=== PATIENT | female | born 1975 | race Two or more races ===

== ENCOUNTER → 2017-04-28 08:25 | Outpatient (CLI) | payer OTHER ==
[~2017-04-28 08:25] MED LIST: FLOVENT13 G1; FLOVENT13 G1 IH; MEDROLPACK PO; PROVENTIL HFA6.7 GM IH; PROVENTIL S1 ML/5 MG; PROVENTIL S1 ML/5 MG IH; ZYRTEC10 MG PO
== END | disposition home or self-care (01) ==
LOC: LAB 04-27 12:08
DX: Z11.3 Encounter for screening for infections with a predominantly sexual mode of transmission (principal); N64.3 Galactorrhea not associated with childbirth; E03.8 Other specified hypothyroidism

== ENCOUNTER 2017-04-28 15:03 | Outpatient (CLI) | payer OTHER | END 2017-05-02 09:25 | disposition home or self-care (01) | LOC: SONOGRAMA 15:03 | DX: D25.9 Leiomyoma of uterus, unspecified (principal) ==

== ENCOUNTER 2017-06-02 06:36 | Day surgery (SDC) | payer OTHER | END 2017-06-02 15:20 | disposition home or self-care (01) | LOC: CIR.AMB 06:36 | DX: D25.9 Leiomyoma of uterus, unspecified (principal); N85.00 Endometrial hyperplasia, unspecified; N92.1 Excessive and frequent menstruation with irregular cycle ==

== ENCOUNTER → 2017-06-12 | Outpatient (CLI) | payer OTHER ==
[~2017-06-12] VITALS: Ht 152.4 cm; Wt 70.8 kg
== END | disposition home or self-care (01) ==
LOC: PPHC 12:15
DX: I10 Essential (primary) hypertension (principal)

== ENCOUNTER → 2017-06-20 | Outpatient (CLI) | payer OTHER ==
[~2017-06-20] VITALS: Ht 152.4 cm; Wt 70.8 kg
== END | disposition home or self-care (01) ==
LOC: PPHC 12:19
DX: B34.9 Viral infection, unspecified (principal)

== ENCOUNTER → 2017-10-03 07:36 | Outpatient (CLI) | payer OTHER | END | disposition home or self-care (01) | LOC: LAB 07:36 | DX: E78.4 Other hyperlipidemia (principal); I10 Essential (primary) hypertension ==

== ENCOUNTER 2017-10-05 08:16 | Outpatient (CLI) | payer OTHER | END 2017-10-05 10:17 | disposition home or self-care (01) | LOC: LAB 08:16 | DX: Z11.1 Encounter for screening for respiratory tuberculosis (principal) ==

== ENCOUNTER 2017-11-07 06:59 | Outpatient (CLI) | payer OTHER | END 2017-11-08 08:39 | disposition home or self-care (01) | LOC: RAD 06:59 | DX: N64.3 Galactorrhea not associated with childbirth (principal); Z12.31 Encounter for screening mammogram for malignant neoplasm of breast; N60.11 Diffuse cystic mastopathy of right breast; N60.12 Diffuse cystic mastopathy of left breast ==

== ENCOUNTER → 2017-11-07 07:08 | Outpatient (CLI) | payer OTHER ==
[~2017-11-07 07:08] MED LIST changes: +COLACE100 MG PO; +PERCOCET 5-3251 EACH PO
== END | disposition home or self-care (01) ==
LOC: LAB 07:08
DX: D50.8 Other iron deficiency anemias (principal); E83.51 Hypocalcemia; E78.00 Pure hypercholesterolemia, unspecified; E03.8 Other specified hypothyroidism; N39.0 Urinary tract infection, site not specified; Z32.00 Encounter for pregnancy test, result unknown

== ENCOUNTER 2017-11-14 16:08 | Outpatient (CLI) | payer OTHER ==
[~2017-11-14 16:08] MED LIST changes: -COLACE100 MG PO; -PERCOCET 5-3251 EACH PO
== END 2017-11-14 16:21 | disposition home or self-care (01) ==
LOC: EKG 16:08
DX: Z13.6 Encounter for screening for cardiovascular disorders (principal); N39.0 Urinary tract infection, site not specified

== ENCOUNTER 2017-11-21 08:42 | Inpatient (IN) | payer OTHER ==
[~2017-11-21] VITALS: Ht 157.5 cm; Wt 73.5 kg
[2017-11-26] MEDS ORDERED: COLACE100 MG PO (08:58)
[2017-11-26] MEDS ORDERED: PERCOCET 5-3251 EACH PO (08:58)
== END 2017-11-26 10:51 | disposition home or self-care (01) | DRG 743 ==
LOC: O/R 11-24 05:08 → SURH 11-24 07:00 → OB/GYN 11-24 11:00
PROVIDERS: Specialist
PROC: 3E0F7GC Introduction of Other Therapeutic Substance into Respiratory Tract, Via Natural or Artificial Opening (ICD-10-PCS; 2017-11-24)
PROC: 0UT90ZZ Resection of Uterus, Open Approach (ICD-10-PCS; principal; 2017-11-24 07:00)
DX: D25.1 Intramural leiomyoma of uterus (principal); N72 Inflammatory disease of cervix uteri; I10 Essential (primary) hypertension; J45.909 Unspecified asthma, uncomplicated

== ENCOUNTER → 2017-12-05 12:58 | Outpatient (CLI) | payer OTHER ==
[~2017-12-05 12:58] MED LIST changes: +COLACE100 MG PO; +PERCOCET 5-3251 EACH PO
== END | disposition home or self-care (01) ==
LOC: LAB 12:58
DX: N39.0 Urinary tract infection, site not specified (principal)

== ENCOUNTER 2017-12-18 12:58 | Outpatient (CLI) | payer OTHER | END 2017-12-18 13:23 | disposition home or self-care (01) | LOC: SONOGRAMA 12:58 | DX: J45.21 Mild intermittent asthma with (acute) exacerbation (principal); N60.11 Diffuse cystic mastopathy of right breast; N60.12 Diffuse cystic mastopathy of left breast ==

== ENCOUNTER 2018-04-14 10:56 | Outpatient (CLI) | payer OTHER | END 2018-04-14 11:07 | disposition home or self-care (01) | LOC: LAB 10:56 | DX: Z00.00 Encounter for general adult medical examination without abnormal findings (principal); E78.49 Other hyperlipidemia; R57.8 Other shock; M54.2 Cervicalgia ==

== ENCOUNTER 2018-08-17 17:20 | Outpatient (CLI) | payer OTHER | END 2018-08-17 18:00 | disposition home or self-care (01) | LOC: RAD 17:20 | DX: M79.672 Pain in left foot (principal) ==

== ENCOUNTER 2019-01-05 14:11 | Outpatient (CLI) | payer OTHER | END 2019-01-05 14:20 | disposition home or self-care (01) | LOC: LAB 14:11 | DX: Z11.3 Encounter for screening for infections with a predominantly sexual mode of transmission (principal) ==

== ENCOUNTER 2019-07-24 10:42 | Outpatient (CLI) | payer OTHER | END 2019-07-24 11:30 | disposition home or self-care (01) | LOC: MAMO-SONO 10:42 | DX: Z12.31 Encounter for screening mammogram for malignant neoplasm of breast (principal); Z87.898 Personal history of other specified conditions ==

== ENCOUNTER → 2019-08-15 | Outpatient (CLI) | payer OTHER ==
[~2019-08-15] MED LIST changes: +CYCLOBENZAPRINE10 MG PO; +NABUMETONE500 MG PO
== END | disposition home or self-care (01) ==
LOC: RAD 13:00
PROVIDERS: ATTEND Physical Medicine & Rehabilitation
DX: M54.2 Cervicalgia (principal)

== ENCOUNTER → 2019-11-07 07:24 | Outpatient (CLI) | payer OTHER ==
[~2019-11-07 07:24] MED LIST changes: +SKELAXIN800 MG PO
== END | disposition home or self-care (01) ==
LOC: LAB 07:24
PROVIDERS: ATTEND Physical Medicine & Rehabilitation
DX: Z20.828 Contact with and (suspected) exposure to other viral communicable diseases (principal); Z03.818 Encounter for observation for suspected exposure to other biological agents ruled out

== ENCOUNTER 2019-12-12 10:23 | Outpatient (CLI) | payer OTHER | END 2019-12-12 10:29 | disposition home or self-care (01) | LOC: LAB 10:23 | PROVIDERS: ATTEND Physical Medicine & Rehabilitation | DX: Z20.828 Contact with and (suspected) exposure to other viral communicable diseases (principal); Z11.59 Encounter for screening for other viral diseases ==

== ENCOUNTER 2019-12-12 16:44 | Outpatient (CLI) | payer OTHER | END 2019-12-12 16:52 | disposition home or self-care (01) | LOC: RAD 16:44 | PROVIDERS: ATTEND Physical Medicine & Rehabilitation | DX: M75.81 Other shoulder lesions, right shoulder (principal) ==

== ENCOUNTER → 2019-12-17 16:46 | Outpatient (CLI) | payer OTHER | END | disposition home or self-care (01) | LOC: PPH VACUNA 16:46 | DX: Z23 Encounter for immunization (principal) ==

== ENCOUNTER 2019-12-31 07:41 | Outpatient (CLI) | payer OTHER | END 2019-12-31 07:47 | disposition home or self-care (01) | LOC: SONOGRAMA 07:41 | PROVIDERS: ATTEND Physical Medicine & Rehabilitation | DX: M75.81 Other shoulder lesions, right shoulder (principal) ==

== ENCOUNTER → 2020-08-11 12:28 | Outpatient (CLI) | payer OTHER | END | disposition home or self-care (01) | LOC: LAB 12:28 | PROVIDERS: ATTEND Emergency Medicine Pediatric Emergency Medicine | DX: Z20.828 Contact with and (suspected) exposure to other viral communicable diseases (principal) ==

== ENCOUNTER → 2020-09-11 06:59 | Outpatient (CLI) | payer OTHER | END | disposition home or self-care (01) | LOC: LAB 06:59 | PROVIDERS: ATTEND Internal Medicine Cardiovascular Disease | DX: I10 Essential (primary) hypertension (principal); E11.9 Type 2 diabetes mellitus without complications; E03.9 Hypothyroidism, unspecified; E78.2 Mixed hyperlipidemia; E55.9 Vitamin D deficiency, unspecified; J44.9 Chronic obstructive pulmonary disease, unspecified ==

== ENCOUNTER 2020-11-02 12:37 | Outpatient (CLI) | payer OTHER | END 2020-11-02 12:38 | disposition home or self-care (01) | LOC: NUCLEAR 12:37 | PROVIDERS: ATTEND Internal Medicine Cardiovascular Disease | DX: M81.0 Age-related osteoporosis without current pathological fracture (principal); E55.9 Vitamin D deficiency, unspecified ==

== ENCOUNTER 2020-11-02 12:40 | Outpatient (CLI) | payer OTHER | END 2020-11-02 12:41 | disposition home or self-care (01) | LOC: MAMO-SONO 12:40 | PROVIDERS: ATTEND Internal Medicine Cardiovascular Disease | DX: N60.11 Diffuse cystic mastopathy of right breast (principal); N60.12 Diffuse cystic mastopathy of left breast; Z12.31 Encounter for screening mammogram for malignant neoplasm of breast; N64.59 Other signs and symptoms in breast ==

== ENCOUNTER 2021-01-08 10:00 | Outpatient (CLI) | payer OTHER | END 2021-01-08 10:15 | disposition home or self-care (01) | LOC: PPH VACUNA 10:00 | PROVIDERS: ATTEND Emergency Medicine Pediatric Emergency Medicine | DX: Z23 Encounter for immunization (principal) ==

== ENCOUNTER 2021-01-15 10:00 | Outpatient (CLI) | payer OTHER | END 2021-01-15 10:06 | disposition home or self-care (01) | LOC: PPH VACUNA 10:00 | PROVIDERS: ATTEND Emergency Medicine Pediatric Emergency Medicine | DX: Z23 Encounter for immunization (principal) ==

== ENCOUNTER 2021-03-03 12:05 | Emergency (ER) | payer OTHER ==
[~2021-03-03] VITALS: Ht 154.9 cm; Wt 72.6 kg
[2021-03-03] MEDS ORDERED: TESSALON PERLE100 M1 PO (17:22)
[2021-03-03] MEDS ORDERED: PROMETH-CODEIN 65 ML PO (17:22)
[2021-03-03] MEDS ORDERED: IPRAT-ALBUT 0.5-3 ML IH (17:22)
[2021-03-03] MEDS ORDERED: BUDESONIDE0.5 MG/2 M IH (17:22)
[2021-03-03] MEDS ORDERED: ZITHROMAX500 MG PO (17:22)
[2021-03-03] MEDS ORDERED: MUCINEX DM ER1 EAC1 PO (17:22)
[2021-03-03] MEDS ORDERED: MEDROLPACK PO (17:22)
== END 2021-03-03 17:30 ==
LOC: ER 12:05
DX: J45.901 Unspecified asthma with (acute) exacerbation (principal); J04.0 Acute laryngitis; Z20.822 Contact with and (suspected) exposure to COVID-19

== ENCOUNTER 2021-07-21 07:46 | Outpatient (CLI) | payer OTHER ==
[~2021-07-21 07:46] MED LIST changes: +BUDESONIDE0.5 MG/2 M IH; +IPRAT-ALBUT 0.5-3 ML IH; +MUCINEX DM ER1 EAC1 PO; +PROMETH-CODEIN 65 ML PO; +TESSALON PERLE100 M1 PO; +ZITHROMAX500 MG PO
== END 2021-07-21 15:00 | disposition home or self-care (01) ==
LOC: LAB 07:46
DX: U07.1 COVID-19 (principal)

== ENCOUNTER → 2021-08-13 07:34 | Outpatient (CLI) | payer OTHER | END | disposition home or self-care (01) | LOC: LAB 07:34 | DX: Z00.00 Encounter for general adult medical examination without abnormal findings (principal); E78.5 Hyperlipidemia, unspecified; E55.9 Vitamin D deficiency, unspecified; N39.0 Urinary tract infection, site not specified; R42 Dizziness and giddiness; R10.2 Pelvic and perineal pain ==

== ENCOUNTER → 2021-12-03 08:24 | Outpatient (CLI) | payer OTHER | END | disposition home or self-care (01) | LOC: LAB 08:24 | PROVIDERS: ATTEND General Practice | DX: N39.0 Urinary tract infection, site not specified (principal); N76.0 Acute vaginitis ==

== ENCOUNTER 2021-12-23 08:01 | Outpatient (CLI) | payer OTHER | END 2021-12-23 08:08 | disposition home or self-care (01) | LOC: MAMO-SONO 08:01 | PROVIDERS: ATTEND General Practice | DX: N64.4 Mastodynia (principal) ==

== ENCOUNTER 2022-01-06 08:00 | Outpatient (CLI) | payer OTHER | END 2022-01-06 08:05 | disposition home or self-care (01) | LOC: PPH VACUNA 08:00 | PROVIDERS: ATTEND Emergency Medicine Pediatric Emergency Medicine | DX: Z23 Encounter for immunization (principal) ==

== ENCOUNTER 2022-01-07 13:18 | Outpatient (CLI) | payer OTHER | END 2022-01-07 13:30 | disposition home or self-care (01) | LOC: SONOGRAMA 13:18 | PROVIDERS: ATTEND Surgery | DX: N60.11 Diffuse cystic mastopathy of right breast (principal); N60.12 Diffuse cystic mastopathy of left breast ==

== ENCOUNTER 2022-01-11 06:15 | Outpatient (CLI) | payer OTHER | END 2022-01-11 06:16 | disposition home or self-care (01) | LOC: LAB 06:15 | PROVIDERS: ATTEND General Practice | DX: R10.9 Unspecified abdominal pain (principal) ==

== ENCOUNTER 2022-02-15 06:38 | Outpatient (CLI) | payer OTHER | END 2022-02-15 06:39 | disposition home or self-care (01) | LOC: LAB 06:38 | PROVIDERS: ATTEND Surgery | DX: I10 Essential (primary) hypertension (principal); Z20.822 Contact with and (suspected) exposure to COVID-19; D64.9 Anemia, unspecified; D68.9 Coagulation defect, unspecified; N39.0 Urinary tract infection, site not specified; E11.9 Type 2 diabetes mellitus without complications; E04.1 Nontoxic single thyroid nodule; E78.2 Mixed hyperlipidemia ==

== ENCOUNTER 2022-02-25 07:00 | Day surgery (SDC) | payer OTHER ==
[~2022-02-25] VITALS: Ht 152.4 cm; Wt 78.5 kg
== END 2022-02-25 21:10 | disposition home or self-care (01) ==
LOC: CIR.AMB 07:00
PROVIDERS: ATTEND Surgery
DX: D24.1 Benign neoplasm of right breast (principal); N60.31 Fibrosclerosis of right breast; N60.81 Other benign mammary dysplasias of right breast; N60.01 Solitary cyst of right breast; N60.21 Fibroadenosis of right breast; Z88.6 Allergy status to analgesic agent; Z20.822 Contact with and (suspected) exposure to COVID-19
CPT/HCPCS: 19125; 19281; 19282; L8699

== ENCOUNTER → 2022-06-08 | Outpatient (CLI) | payer OTHER | END | disposition home or self-care (01) | LOC: SONOGRAMA 10:42 | DX: M25.512 Pain in left shoulder (principal) ==

== ENCOUNTER 2022-09-21 11:58 | Outpatient (CLI) | payer OTHER | END 2022-09-21 13:03 | disposition home or self-care (01) | LOC: LAB 11:58 | PROVIDERS: ATTEND Preventive Medicine Occupational Medicine | DX: U07.1 COVID-19 (principal) ==

== ENCOUNTER 2022-10-04 13:26 | Outpatient (CLI) | payer OTHER | END 2022-10-04 13:28 | disposition home or self-care (01) | LOC: RAD 13:26 | PROVIDERS: ATTEND Physical Medicine & Rehabilitation | DX: M54.2 Cervicalgia (principal); M54.6 Pain in thoracic spine; M25.532 Pain in left wrist ==

== ENCOUNTER 2023-01-12 06:51 | Outpatient (CLI) | payer OTHER ==
[2023-01-12 08:02] LABS: PH,URINE 5.5 (5.0-8.0); URINE APPEARANCE Cloudy; URINE BILIRRUBIN Negative (NEGATIVE); URINE BLOOD Moderate; URINE COLOR Yellow; URINE GLUCOSE Negative (NEGATIVE); URINE LEUKOCYTE Negative; URINE NITRATE Negative; URINE PROTEIN Trace (NEGATIVE); URINE UROBILINOGEN 0.2 E.U./dl
[2023-01-12 08:02] LABS: HEMATOCRIT 42.1 % (36.0-45.00); HEMOGLOBIN 14.5 g/dL (12.0-15.00); MEAN CELL VOLUME 93.7 fL (80.00-100.00); MEAN CORPUSCULAR HEMOGLOBIN 32.2 pg (27.00-32.0); MEAN CORPUSCULAR HGB CONC 34.4 g/dl (32.0-36.0); PLATELET COUNT 303 K/uL (150-450); RED CELL DISTRIBUTION WIDTH 12.4 % (11.5-14.5)
[2023-01-12 08:06] LABS: URINE BACTERIA 4256.1 uL (0.0-1933); URINE EPITHELIAL CELLS 158.7 uL (0.0-38.8); URINE RBC 50.3 uL (0.0-20.8); URINE WBC 31.2 uL (0.0-23.2)
[2023-01-12 08:29] LABS: URINE YEAST NEGATIVE /hpf
[2023-01-12 08:36] LABS: ALBUMIN 3.4 gm/dL (3.4-5.0); ALKALINE PHOSPHATASE 77 U/L (50-136); ALT/SGPT 23 U/L (12-78); ANION GAP 8 (10.0-20.0); AST/SGOT 9 U/L (15-37); BILIRUBIN TOTAL 0.52 mg/dL (0.3-1.2); BILIRUBIN,CONJUGATED < 0.10 mg/dL (0.0-0.2); BILIRUBIN,UNCONJUGATED 0.42 mg/dL (0.0-0.6); BLOOD UREA NITROGEN 11 mg/dL (7-18); BUN CREA RATIO 21 (7.0-25.0); CALCIUM 8.9 mg/dL (8.5-10.1); CARBON DIOXIDE 30 mEq/L (21-32); CHLORIDE 106 mmol/L (98-107); CHOL HDL RATIO 5.5 (0-5.0); CHOLESTEROL 242 mg/dL (0-200); CREATININE SERUM 0.52 mg/dL (0.55-1.02); GFR 125.86; GLOBULINA 3.4 G/DL (2.4-3.5); GLUCOSE FASTING 96 mg/dL (65-100); HDL 44 mg/dl (40-60); LDL 161 mg/dl (0-130); OSMOLALITY SERUM 279 MOSM/KG (275-295); POTASSIUM 3.73 mEq/L (3.5-5.1); SODIUM 140 mmol/L (136-145); T3 UPTAKE 29 % (30-39); T4 TOTAL 8.84 UG/DL (4.8-13.9); TOTAL PROTEIN 6.8 gm/dL (6.4-8.2); TRIGLYCERIDES 187 mg/dL (0-150); VLDL 37 (0-39)
[2023-01-12 09:29] LABS: T3 TOTAL 1.15 ng/ml (0.846-2.02)
[2023-01-12 09:30] LABS: VITAMIN D3 25 HYDROXY 18.6 ng/ml (30-120)
== END 2023-01-12 06:59 | disposition home or self-care (01) ==
LOC: LAB 06:51
PROVIDERS: ATTEND General Practice
DX: E78.5 Hyperlipidemia, unspecified (principal); E55.9 Vitamin D deficiency, unspecified; N39.0 Urinary tract infection, site not specified; R42 Dizziness and giddiness; R10.9 Unspecified abdominal pain; R10.2 Pelvic and perineal pain; Z88.6 Allergy status to analgesic agent

== ENCOUNTER 2023-01-12 07:32 | Outpatient (CLI) | payer OTHER | END 2023-01-12 07:37 | disposition home or self-care (01) | LOC: MAMO-SONO 07:32 | PROVIDERS: ATTEND Surgery | DX: N60.11 Diffuse cystic mastopathy of right breast (principal); N60.12 Diffuse cystic mastopathy of left breast; Z12.31 Encounter for screening mammogram for malignant neoplasm of breast ==

== ENCOUNTER 2023-02-21 14:22 | Outpatient (CLI) | payer OTHER | END 2023-02-21 14:33 | disposition home or self-care (01) | LOC: RAD 14:22 | PROVIDERS: ATTEND Physical Medicine & Rehabilitation | DX: M25.562 Pain in left knee (principal) ==

== ENCOUNTER 2023-03-24 11:39 | Outpatient (CLI) | payer OTHER | END 2023-03-24 11:40 | disposition home or self-care (01) | LOC: NUCLEAR 11:39 | PROVIDERS: ATTEND General Practice | DX: M85.80 Other specified disorders of bone density and structure, unspecified site (principal) ==

== ENCOUNTER 2024-01-17 08:20 | Outpatient (CLI) | payer OTHER | END 2024-01-17 08:25 | disposition home or self-care (01) | LOC: MAMO-SONO 08:20 | PROVIDERS: ATTEND Surgery | DX: N60.11 Diffuse cystic mastopathy of right breast (principal); N60.12 Diffuse cystic mastopathy of left breast ==